=== PATIENT | female | born 1970 | race Caucasian/White ===

== ENCOUNTER 2016-08-27 09:01 | Outpatient (CLI) | payer BC ==
[2015-08-13 14:26] VITALS: BMI 21.5
[~2016-08-27 09:01] MED LIST: NAPR250T PO; TOPI25CA PO; VALA500T PO
== END 2016-08-27 18:54 | disposition home or self-care (01) ==
LOC: SMI 09:01
DX: G93.5 Compression of brain (principal); M50.222 Other cervical disc displacement at C5-C6 level
CPT/HCPCS: 72141

== ENCOUNTER 2016-12-04 08:45 | Outpatient (CLI) | payer BC | END 2016-12-04 21:13 | disposition home or self-care (01) | LOC: SMI 08:45 | DX: G93.5 Compression of brain (principal); M47.892 Other spondylosis, cervical region | CPT/HCPCS: 72141 ==

== ENCOUNTER 2018-02-18 11:07 | Outpatient (CLI) | payer BC | END 2018-02-18 20:09 | disposition home or self-care (01) | LOC: SMI 11:07 | DX: M54.2 Cervicalgia (principal); R42 Dizziness and giddiness | CPT/HCPCS: 72141 ==

== ENCOUNTER 2020-09-28 20:41 | Emergency (ER) | payer BC ==
[~2020-09-28] VITALS: Ht 154.9 cm; Wt 56.7 kg
[2020-09-28 20:41] VITALS: BP_SYST 124
[2020-09-28] MEDS ORDERED: IBUP-1969 PO (21:58)
[2020-09-28] MEDS ORDERED: AMOX-423 PO (21:58)
[2020-09-28 22:15] VITALS: BP_SYST 124
[2020-09-28] MEDS ORDERED: DIPH-TET-PERTUS Vaccine 0.5 ML VIAL (ADACEL) I.M. ONE (22:15)
== END 2020-09-28 22:15 | disposition home or self-care (01) ==
LOC: SED 20:41
DX: S80.01XA Contusion of right knee, initial encounter (principal); Z79.899 Other long term (current) drug therapy; W01.0XXA Fall on same level from slipping, tripping and stumbling without subsequent striking against object, initial encounter; Y93.89 Activity, other specified; Y92.89 Other specified places as the place of occurrence of the external cause; Y99.8 Other external cause status
CPT/HCPCS: 73564; 90715; 99284

== ENCOUNTER 2020-11-01 13:17 | Outpatient (CLI) | payer BC ==
[~2020-11-01 13:17] MED LIST changes: +AMOX-423 PO; +IBUP-1969 PO
== END 2020-11-02 19:15 | disposition short-term general hospital (02) ==
LOC: SRD 13:17
DX: M25.562 Pain in left knee (principal)
CPT/HCPCS: 73564

== ENCOUNTER → 2020-11-22 | Outpatient (CLI) | payer BC | END | disposition home or self-care (01) | LOC: SMI 10:41 | DX: M25.562 Pain in left knee (principal) | CPT/HCPCS: 73721 ==